=== PATIENT | female | born 1965 | race Caucasian/White ===

== ENCOUNTER 2017-02-06 09:25 | Outpatient (CLI) | payer OTHER ==
[2016-08-28 04:18] VITALS: BP 107/78
[~2017-02-06 09:25] MED LIST: 0.9 % SODIUM CHLORIDE PF 10 ML VIAL IJ ONE; Lidocaine 1% 5ml(IM or SUTURE)(PAIN CLINIC) ONE; TRIAMCINOLONE ACETONID 40MG/ML VIAL ONE
--- NOTE | 2017-02-06 15:22 | CAUDAL ESI WITH FLUORO ---
REFERRING PHYSICIAN: Dr. Yana Darling Dear Dr. Darling: SUBJECTIVE: I had the opportunity of seeing Delilah Shafer in follow up. This is a very nice 51-year-old white female who I treated last year for lumbosacral back pain with symptoms of bilateral radicular pain, pain down both legs, achy legs, and weakness with walking. She tells me that the caudal had worked very well. She continues on Percocet. PROCEDURE: Caudal epidural steroid injection. DESCRIPTION OF PROCEDURE: The risks and benefits of a caudal epidural steroid injection were explained to the patient, including the risk of infection, bleeding, nerve injury, worsened pain, failure to relieve pain, spinal headache or steroid exposure risks, including hyperglycemia, hypertension, osteoporosis, and increased infectious risks. The patient understood the risks and agreed to proceed. The patient was placed on the fluoroscopy table in the prone position with a pillow underneath the abdomen. The caudal area was cleaned and AP and lateral fluoroscopic views were obtained, identifying the sacrum and sacral hiatus. The caudal epidural space was accessed from a percutaneous approach at the sacral hiatus with an 25-gauge, 3-1/2-inch needle. On entering the caudal epidural space, it was verified that there was no aspiration of blood or CSF or urine. Furthermore, the needle tip location was verified with lateral and AP fluoroscopic views. Omnipaque 240 myelogram dye was injected through the needle. The distribution of the dye was noted to be within the desired distribution within the caudal epidural space. Triamcinolone acetate and 1% lidocaine was injected into the caudal epidural space. The stylette was replaced in the needle and the needle was subsequently removed from the back. The patient tolerated the procedure without adverse sequelae. The sacral area was cleaned and a bandage was applied over the injection site. The patient was then monitored for 20 minutes following the procedure, during which time the vital signs remained stable and no adverse sequelae were noted or reported. The patient was discharged home with a local delivery truck driver and was in good condition on discharge. ASSESSMENT: 1. Lumbosacral radiculitis. 2. Neuroforaminal stenosis. PLAN: At this point, I am going to repeat a caudal epidural steroid injection today. I did talk to her about tapering the oxycodone in favor of the buprenorphine patch and I am going to provide her with a prescription for a 10 mcg buprenorphine patch and ask her to begin to self-taper of the oxycodone, which she gets from Dr. Darling, to see if we can get her on a target dose of a 20 mcg buprenorphine patch. She is in agreement today and we will proceed. FOLLOW UP: Patient is to call for complications or worsened pain. cc: Dr. Yana BARNHART
== END 2017-02-06 09:26 ==
LOC: OUT 09:25
PROVIDERS: ATTEND Anesthesiology Pain Medicine
DX: M48.07 Spinal stenosis, lumbosacral region (principal); M54.17 Radiculopathy, lumbosacral region
CPT/HCPCS: J3301; Q9966; 99214

== ENCOUNTER 2017-02-12 07:35 | Outpatient (CLI) | payer OTHER ==
[2016-08-28 04:18] VITALS: BP 107/78
--- NOTE | 2017-02-12 13:38 | Diagnostic Imaging Report ---
LAKESHA OJEDA~ [facility] [address] [facility] [address] [place], [place]. [address] ~ ~ ~ ~ Report Submission Date: Feb 12, 2017 12:28:29 PM CDT Patient ~ Study Name: JOVITA BRUNO ~ Date: Feb 12, 2017 7:50:27 AM CDT ~ Modality Type: MR Gender: F ~ Description: MRI L SPINE W/O CONTRAST : 61 ~ Institution: [facility] Physician: LAKESHA OJEDA ~ ~ ~ ~ Magnetic resonance imaging of the lumbar spine without contrast History: Low back and left leg pain for 2 years, recently worsening Findings: Routine sagittal and axial images of the lumbar spine are obtained without contrast. Bone marrow signal is normal. The conus medullaris terminates at L1/L2. The spinal canal and neural foramina are widely patent. Intervertebral disks are normal at all levels. Mild bilateral L3/L4, moderate right L4/L5, and mild right L5/S1 facet arthropathy is observed. There is no disc extrusion, fracture , spondylolysis, spondylolisthesis, or focal bone lesion. Impression: 1. L3 through S1 facet arthropathy as described. 2. Normal intervertebral disks. 3. No evidence of spinal stenosis or disc extrusion. ~ Electronically signed on Feb 12, 2017 12:28:29 PM CDT by: Peter BARNHART
== END 2017-02-12 07:36 ==
LOC: RAD 07:35
PROVIDERS: ATTEND Anesthesiology Pain Medicine
DX: M54.5 Low back pain (principal)
CPT/HCPCS: 72148

== ENCOUNTER 2017-04-03 07:15 | Outpatient (CLI) | payer OTHER ==
[2016-08-28 04:18] VITALS: BP 107/78
--- NOTE | 2017-04-04 11:24 | LUMBAR FACET MBB ---
SUBJECTIVE: Delilah follows up with a new MRI which revealed primarily spondylolytic changes of the lumbar spine. No spinal or neuroforaminal stenosis. She has lumbar spondylosis at L3-L4, L4-L5, and L5-S1 and she failed caudal epidural steroid injection. At this point, I have re-examined her and she does have a positive assisted extension and an extension rotation finding. I am going to plan on placing bilateral facet medial branch blocks with anesthesia for sedation because of pain and anxiety. ANESTHESIA: MAC anesthesia. ANESTHESIOLOGIST: Radha Mcintosh CRNA OPERATIVE PROCEDURE: Bilateral L3 through sacral ala facet medial nerve branch blocks with fluoroscopic guidance. DESCRIPTION OF PROCEDURE: Consent was obtained after risks were fully explained including bleeding, infection, nerve damage, and worsening of pain. The patient was positioned prone on the fluoroscopic table and sterile prep and drape were applied. The L3 vertebral body and transverse process was identified with a left oblique technique. At the junction of the L3 superior articulating process and the L3 transverse process, a needle was placed at the facet medial branch. There was no aspiration of blood or CSF, and following this injection, 1% of lidocaine mixed with 0.25% bupivacaine and triamcinolone was placed. In this exact same fashion, the right L3, bilateral L4, bilateral L5, and bilateral sacral ala facet medial branch blocks were placed. The patient tolerated the procedure well. There were no complications. She will be discharged to home with a diary and consider radiofrequency neurolysis. ASSESSMENT: Lumbar facet arthropathy. FOLLOWUP: Return to clinic if problems develop or worsen. cc: Dr. Yana BARNHART
== END 2017-04-03 07:16 ==
LOC: OUT 07:15
PROVIDERS: ATTEND Anesthesiology Pain Medicine
DX: M47.816 Spondylosis without myelopathy or radiculopathy, lumbar region (principal)
CPT/HCPCS: J2250; J2704; J3301; J3490; J7060; 64493; 64494; 64495; 99214; S1016

== ENCOUNTER 2017-06-17 20:28 | Emergency (ER) | payer OTHER ==
[2017-06-17 21:21] VITALS: BP 119/76
== END 2017-06-17 21:50 ==
LOC: ED 20:28
DX: R42 Dizziness and giddiness (principal)
CPT/HCPCS: 99281

== ENCOUNTER 2017-06-25 00:55 | Emergency (ER) | payer OTHER ==
[2017-06-25] MEDS: 0.9 % SODIUM CHLORIDE 500 ML IV ONE (01:20)
--- NOTE | 2017-06-25 01:25 | ED Physician Documentation ---
General Adult - HISTORIAN Historian: patient - HPI Stated Complaint: vomited blood Chief Complaint: General Adult Onset: hours Timing: still present Severity: moderate Further Comments: yes (Pt is a 52 yo female with c/o vomiting blood x 2 prior to arrival. Pt states it was a significant amount of blood in a waste basket. Pt states that she has had frequent days of diarrhea in the past month with 4 to 5 diarrheal bm's on these days. Pt also sometimes has constipation. Pt has not noted any bloody bm's or black bm's. Pt states she has been getting dizzy in the past days and had attributed this to the heat. Pt came to ER for dizziness 8 days ago, but left without being seen. Pt has hx bipolar d/o, anxiety/depression, back pain, hypothyroidism, HLD, GERD.) - ROS CONST: weakness, other (dizziness) EYES/ENT: none CVS/RESP: none GI/: vomiting, nausea, diarrhea, other (constipation) MS/SKIN/LYMPH: none NEURO/PSYCH: dizziness - PAST HX Past History: other (bipolar d/o, anxiety/depression, back pain, hypothyroidism , HLD, GERD.) Allergies/Adverse Reactions: Allergies Allergy/AdvReac Type Severity Reaction Status Date / Time methadone Allergy Verified 06/25/17 01:39 niacin Allergy Verified 06/25/17 01:39 Home Medications: Ambulatory Orders Medication Instructions Recorded Atorvastatin Calcium 40 mg PO HS 03/15/16 Levothyroxine Sodium [Synthroid] 75 mcg PO 0600 03/15/16 Omeprazole [Prilosec] 20 mg PO 0600 03/15/16 Oxycodone HCl [Roxicodone] 10 mg PO Q4-6 PRN 03/15/16 Quetiapine Fumarate [Seroquel Xr] 300 mg PO HS 03/15/16 Ropinirole HCl 2 mg PO BID 03/15/16 - SOCIAL HX Smoking History: cigarettes, less than 1 pack/day Alcohol Use: none - FAMILY HX Family History: No - VITAL SIGNS Vital Signs: Vital Signs Temp Pulse Resp BP Pulse Ox 98.3 F 88 16 116/84 98 06/25/17 00:55 06/25/17 00:55 06/25/17 00:55 06/25/17 00:55 06/25/17 00:55 - REVIEWED ASSESSMENTS Nursing Assessment Reviewed: Yes Vitals Reviewed: Yes Progress - Progress Progress: Orthostatics Lying BP 96/67 HR 71 Sitting BP 121/86 HR 72 Standing BP 123/83 HR 85 NS 1 L IVF Protonix 40 mg IV Transfer to [facility]. Dr. Roberts (d/w Dr. Devon SMITH) ED Results Lab/Radiology - Orders Orders: ED Orders Category Date Time Status Place IV Lock 1T Care 06/25/17 01:16 Active CBC/PLATELET/DIFF Routine Lab 06/25/17 Ordered CMP Routine Lab 06/25/17 Ordered PT-INR Routine Lab 06/25/17 Ordered 0.9 % Sodium Chloride [Normal Saline] 500 ml Med 06/25/17 01:17 Active IV NOW General Adult Physical Exam - PHYSICAL EXAM GENERAL APPEARANCE: mild distress EENT: pharynx normal NECK: normal inspection, supple RESPIRATORY: no resp distress, chest non-tender, breath sounds normal CVS: reg rate & rhythm, heart sounds normal ABDOMEN: soft, normal bowel sounds, tenderness (mild, diffuse) RECTAL: normal exam, normal rectal tone, heme negative stool BACK: normal inspection, no CVA tenderness SKIN: warm/dry, normal color EXTREMITIES: non-tender, normal range of motion, no evidence of injury, no edema NEURO: oriented X3, motor nml, sensation nml Discharge Clincal Impression: Hematemesis/vomiting blood Qualifiers: Nausea presence: with nausea Qualified Code(s): K92.0 - Hematemesis Referrals: Yana Darling MD [Primary Care Provider] - Home Medications: Ambulatory Orders Atorvastatin Calcium 40 mg PO HS 03/15/16 Levothyroxine Sodium [Synthroid] 75 mcg PO 0600 03/15/16 Omeprazole [Prilosec] 20 mg PO 0600 03/15/16 Oxycodone HCl [Roxicodone] 10 mg PO Q4-6 PRN 03/15/16 Quetiapine Fumarate [Seroquel Xr] 300 mg PO HS 03/15/16 Ropinirole HCl 2 mg PO BID 03/15/16 Condition: Stable Disposition: 02 XFER SHT-TRM HOSP Decision to Admit: NO Decision Time: 03:41
[2017-06-25 01:38] LABS: BASOPHILS % 0.5 (0.0-1.5); EOSINOPHILS % 1.6 % (0.0-6.8); MEAN CORPUSCULAR HEMOGLOBIN 31.7 pg (28.0-34.0); MEAN CORPUSCULAR VOLUME 90.9 fl (80.0-100.0); MONOCYTES % 2.9 % (0.0-11.0); NEUTROPHILS # 8.8 # k/uL (1.4-7.7)
[2017-06-25 01:53] LABS: eGFR (African) > 60; eGFR (Non-African) > 60
[2017-06-25] MEDS ORDERED: PANTOPRAZOLE SODIUM INJ. 40 MG VIAL ONE (02:12)
[2017-06-25] MEDS ORDERED: 0.9 % SODIUM CHLORIDE 50 ML IV ONE (02:13)
[2017-06-25] MEDS: PANTOPRAZOLE SODIUM 40 MG in 0.9 % SODIUM CHLORIDE 50 ML IV SCH (02:23)
[2017-06-25 04:14] VITALS: BP 127/84
== END 2017-06-25 03:50 | disposition short-term general hospital (02) ==
LOC: ED 00:55
DX: K92.0 Hematemesis (principal)
CPT/HCPCS: 80053; 85025; 85610; J7060; 96360; 99284; S1016